=== PATIENT | male | born 1960 | race Caucasian/White ===

== ENCOUNTER 2024-06-04 06:40 | Observation (INO) | payer MEDICARE, OTHER ==
--- NOTE | 2024-06-04 07:25 | ED ---
General Adult HPI - General Chief complaint: Dizziness Stated complaint: Dizziness Time Seen by Provider: 06/04/24 07:01 Source: patient, family, RN notes reviewed Mode of arrival: wheelchair Limitations: no limitations - History of Present Illness Initial comments: Patient is a 64-year-old male present to the emergency department with concern for dizziness. Onset of symptoms was a couple hours ago. Patient woke up and felt dizzy described as a spinning type sensation. Symptoms worsen with head movement and upright position. No weakness or confusion. Patient has had some problems with word finding. No history of similar symptoms previously. - Related Data Home Medications Medication Instructions Recorded Confirmed No Known Home Medications 06/04/24 06/04/24 Allergies Allergy/AdvReac Type Severity Reaction Status Date / Time No Known Allergies Allergy Verified 06/04/24 10:55 Review of Systems ROS Statement: Those systems with pertinent positive or pertinent negative responses have been documented in the HPI. ROS Other: All systems not noted in ROS Statement are negative. Constitutional: Denies: fever Eyes: Denies: eye pain ENT: Denies: ear pain Respiratory: Denies: cough Cardiovascular: Denies: chest pain Gastrointestinal: Reports: nausea. Denies: abdominal pain Neurological: Reports: as per HPI, vertigo. Denies: weakness General Exam Limitations: no limitations General appearance: alert, in no apparent distress Head exam: Present: normocephalic Eye exam: Present: normal appearance, PERRL, EOMI. Absent: nystagmus ENT exam: Present: normal oropharynx Neck exam: Present: normal inspection Respiratory exam: Present: normal lung sounds bilaterally Cardiovascular Exam: Present: regular rate, normal rhythm GI/Abdominal exam: Present: soft. Absent: tenderness Extremities exam: Present: normal inspection. Absent: pedal edema, calf tendern ess Neurological exam: Present: alert, oriented X3, CN II-XII intact. Absent: motor sensory deficit Expanded Neurological exam: Present: protecting the airway Speech: Present: fluid speech Cranial nerves: EOM's Intact: Normal, Facial Sensation: Normal Sensory exam: Upper Extremity Light Touch: Normal, Lower Extremity Light Touch: Normal Motor strength exam: RUE: 5, LUE: 5, RLE: 5, LLE: 5 Eye Response: (4) open spontaneously Motor Response: (6) obeys commands Verbal Response: (5) oriented Psychiatric exam: Present: normal affect, normal mood Skin exam: Present: normal color Course Vital Signs 06/04/24 06/04/24 06/04/24 06:52 08:13 10:48 Temperature 97.2 F L Pulse Rate 69 73 79 Respiratory 18 18 18 Rate Blood Pressure 146/86 157/82 158/92 O2 Sat by Pulse 97 95 97 Oximetry EKG Findings - EKG Results: EKG: interpreted by ERMD, sinus rhythm, normal axis, normal QRS, normal ST/T Medical Decision Making - Medical Decision Making Was pt. sent in by a medical professional or institution (, PA, INDUSTRIAL GARAGE SERVICER, urgent care, hospital, or [facility]...) When possible be specific @ -No Did you speak to anyone other than the patient for history (EMS, parent, family, police, friend...)? What history was obtained from this source @ - is present helps right history including her concerns with speech problems of the patient Did you review nursing and triage notes (agree or disagree)? Why? @ -I reviewed and agree with nursing and triage notes Were old charts reviewed (outside hosp., previous admission, EMS record, old EKG, old radiological studies, urgent care reports/EKG's, [facility] records)? Report findings @ -No old charts were reviewed Differential Diagnosis (chest pain, altered mental status, abdominal pain women, abdominal pain men, vaginal bleeding, weakness, fever, dyspnea, syncope, headache, dizziness, GI bleed, back pain, seizure, CVA, palpatations, mental health, musculoskeletal)? @ -Differential Dizziness: Benign paroxysmal positional Vertigo, Meniere's disease, otitis media, acoustic neuroma, vertebrobasilar insufficiency, cerebellar stroke, encephalitis, hypovolemic, arrhythmia, coronary artery syndrome, anemia, this is not meant to be an all-inclusive list EKG interpreted by me (3pts min.). @ -As above X-rays interpreted by me (1pt min.). @ -None done CT interpreted by me (1pt min.). @ -CT brain does not reveal acute abnormality U/S interpreted by me (1pt. min.). @ -None done What testing was considered but not performed or refused? (CT, X-rays, U/S, labs)? Why? @ -None What meds were considered but not given or refused? Why? @ -None Did you discuss the management of the patient with other professionals (professionals i.e. DrPippa, PA, INDUSTRIAL GARAGE SERVICER, lab, RT, psych nurse, social services assistant, animal treatment investigator, teacher, bomb squad officer, shelter case manager)? Give summary @ -Case was discussed with Dr. Dooley who does not feel patient needs intervention following CTA results. Case also discussed with Dr. Erickson who will admit covering hospital call. Was smoking cessation discussed for >3mins.? @ -No Was critical care preformed (if so, how long)? @ -No Were there social determinants of health that impacted care today? How? (Homelessness, low income, unemployed, alcoholism, drug addiction, trans portation, low edu. Level, literacy, decrease access to med. care, [facility], rehab)? @ -No Was there de-escalation of care discussed even if they declined (Discuss DNR or withdrawal of care, Hospice)? DNR status @ -No What co-morbidities impacted this encounter? (DM, HTN, Smoking, COPD, CAD, Cancer, CVA, ARF, Chemo, Hep., AIDS, mental health diagnosis, sleep apnea, morbid obesity)? @ -None Was patient admitted / discharged? Hospital course, mention meds given and route, prescriptions, significant lab abnormalities, going to OR and other pertinent info. @ -Patient presents with vertigo symptoms. Symptoms improved but not resolved on reevaluation. Patient did also have some speech problems concerned by the however patient did not notice this. Secondary to this patient will be held with neurology consult. Admission orders written. Patient reevaluated and updated. Undiagnosed new problem with uncertain prognosis? @ -No Drug Therapy requiring intensive monitoring for toxicity (Heparin, Nitro, Insulin, Cardizem)? @ -No Were any procedures done? @ -No Diagnosis/symptom? @ -Vertigo Acute, or Chronic, or Acute on Chronic? @ -Acute Uncomplicated (without systemic symptoms) or Complicated (systemic symptoms)? @ -Default Side effects of treatment? @ -No Exacerbation, Progression, or Severe Exacerbation? @ -No Poses a threat to life or bodily function? How? (Chest pain, [place], [place], pneumonia, PE, COPD, DKA, ARF, appy, cholecystitis, CVA, Diverticulitis, Homicidal, Suicidal, threat to staff... and all critical care pts) @ -No - Lab Data Result diagrams: 06/04/24 07:24 06/04/24 07:24 Lab Results 06/04/24 06/04/24 06/04/24 Range/Units 07:24 07:24 07:24 WBC 15.5 H (3.8-10.6) k/uL RBC 5.48 (4.30-5.90) m/uL Hgb 17.4 (13.0-17.5) gm/dL Hct 50.3 (39.0-53.0) % MCV 91.9 (80.0-100.0) fL MCH 31.7 (25.0-35.0) pg MCHC 34.5 (31.0-37.0) g/dL RDW 12.6 (11.5-15.5) % Plt Count 266 (150-450) k/uL MPV 7.9 Neutrophils % 88 % Lymphocytes % 7 % Monocytes % 3 % Eosinophils % 1 % Basophils % 0 % Neutrophils # 13.6 H (1.3-7.7) k/uL Lymphocytes # 1.2 (1.0-4.8) k/uL Monocytes # 0.4 (0-1.0) k/uL Eosinophils # 0.1 (0-0.7) k/uL Basophils # 0.0 (0-0.2) k/uL PT 10.6 (10.0-12.5) sec INR 1.0 (<1.2) APTT 21.9 L (22.0-30.0) sec Sodium 136 L (137-145) mmol/L Potassium 4.4 (3.5-5.1) mmol/L Chloride 104 (98-107) mmol/L Carbon Dioxide 20 L (22-30) mmol/L Anion Gap 12 mmol/L BUN 15 (9-20) mg/dL Creatinine 0.63 L (0.66-1.25) mg/dL Est GFR (CKD-EPI)AfAm >90 (>60 ml/min/1.73 sqM) Est GFR (CKD-EPI)NonAf >90 (>60 ml/min/1.73 sqM) Glucose 278 H (74-99) mg/dL Calcium 9.1 (8.4-10.2) mg/dL Total Bilirubin 1.3 (0.2-1.3) mg/dL AST 21 (17-59) U/L ALT 23 (4-49) U/L Alkaline Phosphatase 116 (38-126) U/L Total Protein 7.6 (6.3-8.2) g/dL Albumin 4.3 (3.5-5.0) g/dL Disposition Clinical Impression: Vertigo Disposition: ADMITTED IP TO THIS HOSP Is patient prescribed a controlled substance at d/c from ED?: No Referrals: [facility] [NON-STAFF] - 1-2 days (Contact a primary care office to become established with a provider. ) None,Stated [Primary Care Provider] - 1-2 days Forms: Area PCPs Time of Disposition: 11:58
[2024-06-04] MEDS: MECLIZINE 12.5 MG TAB PO STA (07:29)
[2024-06-04 07:34] LABS: Basophils % (A) 0 %; Eosinophils # (A) 0.1 k/uL (0-0.7); Eosinophils % (A) 1 %; HCT 50.3 % (39.0-53.0); HGB 17.4 gm/dL (13.0-17.5); Lymphocytes # (A) 1.2 k/uL (1.0-4.8); Lymphocytes % (A) 7 %; MCH 31.7 pg (25.0-35.0); MCHC 34.5 g/dL (31.0-37.0); MCV 91.9 fL (80.0-100.0); Mean Platelet Volume 7.9; Monocytes # (A) 0.4 k/uL (0-1.0); Monocytes % (A) 3 %; Neutrophils # (A) 13.6 k/uL (1.3-7.7); Neutrophils % (A) 88 %; Platelet Count 266 k/uL (150-450); RBC 5.48 m/uL (4.30-5.90); RDW 12.6 % (11.5-15.5); WBC 15.5 k/uL (3.8-10.6)
[2024-06-04] MEDS: SODIUM CHLORIDE 0.9% 1,000 ML IV STA (07:34)
[2024-06-04] MEDS: METOCLOPRAMIDE 5 MG/ML 2 ML VIAL IVP STA (07:34)
[2024-06-04 07:40] LABS: Prothrombin Time 10.6 sec (10.0-12.5)
[2024-06-04 07:45] LABS: ALT 23 U/L (4-49); AST 21 U/L (17-59); African American GFR (CKD) >90 (>60 ml/min/1.73 sqM); Albumin 4.3 g/dL (3.5-5.0); Alkaline Phosphatase 116 U/L (38-126); Anion Gap 12 mmol/L; Blood Urea Nitrogen 15 mg/dL (9-20); Calcium 9.1 mg/dL (8.4-10.2); Carbon Dioxide 20 mmol/L (22-30); Chloride 104 mmol/L (98-107); Glucose 278 mg/dL (74-99); Non-African American GFR(CKD) >90 (>60 ml/min/1.73 sqM); Potassium 4.4 mmol/L (3.5-5.1); Sodium 136 mmol/L (137-145); Total Bilirubin 1.3 mg/dL (0.2-1.3); Total Protein 7.6 g/dL (6.3-8.2)
[2024-06-04 07:47] LABS: Partial Thromboplastin Time 21.9 sec (22.0-30.0)
--- NOTE | 2024-06-04 10:23 | CT ---
EXAMINATION TYPE: CT angio head neck DATE OF EXAM: 06/04/2024 9:57 AM COMPARISON: 06/04/2024.. CLINICAL INDICATION: Male, 64 years old with history of vertigo; PHH, vertigo TECHNIQUE: Axially acquired helical CT angiogram of the head and neck was obtained with contrast. Axi al images are supplemented with 3D reconstructions and MIP images which were post-processed at an in dependent workstation. NASCET criteria used. Contrast used:65 ml mL of Isovue 370 with IV Contrast, Oral contrast used: None. CT DLP: combined 1727 mGycm, Automated exposure control for dose reduction was used. FINDINGS: CTA HEAD: No evidence of acute intracranial hemorrhage, mass effect, or midline shift. The ventricles, sulci, a nd cisterns are unremarkable. Vertebral arteries: The vertebral arteries are patent. Vertebral artery dominance: Right dominant, focal narrowing of 41% stenosis of the right intracranial vertebral artery series 508 image 38. The left vertebral artery does not fill only seen entering the skull there is some tiny calculi vessels present possibly reconstitution of an occluded vertebral ar samy near the level of C1. Basilar artery: The basilar artery is intact. The basilar artery bifurcation is normal. Internal Carotid arteries: The cervical, petrous, cavernous and supraclinoid segments are normal. DOUG: Patent with no evidence of aneurysm. ACOM: Present without evidence of aneurysm. MCA: Patent with no evidence of aneurysm. ASSISTANT STORE MANAGER OPERATIONS: Patent with no evidence of aneurysm. PCOM: Hypoplastic bilaterally. Dural sinuses: Patent. CTA NECK: Right Carotid System: The common carotid artery and external carotid artery are patent. The carotid bifurcation demonstrate s no evidence of hemodynamically significant stenosis. The remaining portions of the internal carotid artery demonstrate normal size without significant narrowing. Left Carotid System: The common carotid artery and external carotid artery are patent. The carotid bifurcation demonstrate s no evidence of hemodynamically significant stenosis. The remaining portions of the internal carotid artery demonstrate normal size without significant narrowing. The right vertebral artery is dominant left vertebral artery does not visualize in the intracranial p ortion which relatively terminates at 5 series 501 image 41% stenosis. There is a three-vessel aortic arch. The origins of the great vessels are patent. No evidence of hemo dynamically significant stenosis. Upper thorax: Paraseptal and centrilobular emphysema changes in lung apices. IMPRESSION: 1. Nonvisualization of the intracranial portion of the left vertebral artery possibly occluded. Cons ider catheter angiography. 2. 41% stenosis of the of the right intracranial vertebral artery series 508 image 38. 3. No evidence of dissection of the cervical internal carotid arteries or vertebral arteries. 4. No any evidence of significant stenosis at the carotid bifurcations. 5. No evidence of additional intracranial high-grade stenosis or intracranial aneurysm. [facility], , 06/04/2024 10:21 AM
--- NOTE | 2024-06-04 10:40 | CT ---
EXAMINATION TYPE: CT brain wo con DATE OF EXAM: 06/04/2024 9:52 AM COMPARISON: None. CLINICAL INDICATION: Male, 64 years old with history of vertigo, TECHNIQUE: Brain: Axial CT images of the brain were obtained with coronal and sagittal reformats created and rev iewed. Contrast used: None. Oral contrast used: None. CT DLP: 1727 mGycm, Automated exposure control for dose reduction was used. FINDINGS: Brain: Extra-axial spaces: No abnormal extra-axial fluid collections. Ventricular system: Within normal limits Cerebral parenchyma: No acute intraparenchymal hemorrhage or mass effect. The weems-white junction is well differentiated. Cerebellum: Unremarkable. Mass effect: No evidence of midline shift. Intracranial vasculature: unremarkable Soft tissues: Normal. Calvarium/osseous structures: No depressed skull fracture. Paranasal sinuses and mastoid air cells: Mild scattered paranasal sinus disease. Visualized orbits: Orbital contents are intact. IMPRESSION: No acute intracranial process. [facility], , 06/04/2024 10:38 AM
[2024-06-04] MEDS ORDERED: MECLIZINE 25 MG TAB PO PRN (11:23)
[2024-06-04] MEDS ORDERED: ACETAMINOPHEN TAB 325 MG TAB PO PRN (11:24)
[2024-06-04] MEDS ORDERED: NALOXONE 0.4 MG/ML 1 ML VIAL IV PRN (11:24)
--- NOTE | 2024-06-04 12:54 | P.HPIM ---
History of Present Illness H&P Date: 06/04/24 Patient is a 64-year-old male with CAD with stent placement x 7, hypertension, hyperlipidemia here for evaluation of dizziness. He reported that he woke up around 430 this morning from bed and smoked a cigarette when he began to have dizziness like the room was spinning with associated blurred vision, nausea with x 1 nonbloody nonbilious emesis and right frontal area headache that was dull but constant with an intensity of 3/10. He was also noted to have difficulty of finding words on admission to the ED but has improved since then. On my assessment, he still having persistent dizziness. He denied facial symmetry, focal weakness, gait changes, chest pain, palpitations, shortness of breath, extremity swelling, calf pain, recent illness or recent hospitalization. He moved from [place] 2 years ago and has not followed up with a PCP since then. On admission: Vitals: Temperature of 97.2 Fahrenheit, pulse rate 69, respiratory rate 18, blood pressure 146/86, O2 saturation 97% on room air Labs: WBC 15.5, hemoglobin 17.4, platelet count 266,000, sodium 136, potassium 4.4, bicarb 20, BUN 15, creatinine 0.63, glucose 278, calcium 9.1. Coagulation panel showed low PTT at 21.9 otherwise unremarkable. Liver enzymes normal, albumin normal.. Imaging: Brain CT showed no acute intracranial process CT angiography of the head and neck showed nonvisualization of the intracranial portion of the left vertebral artery possibly occluded, 41% stenosis of the right intracranial vertebral artery, no evidence of dissection of the carotid arteries or vertebral arteries or stenosis of carotid bifurcations or evidence of additional intracranial high-grade stenosis or aneurysm. EKG on admission showed sinus rhythm with a rate of 72, NC interval 177 MS, left ventricular hypertrophy as noted by increased waves in V3 through V5, no ST-T changes, QTc 418 MS. ED documentation reviewed. Meclizine and IV fluids 0.9 normal saline 75 cc started in the ED Review of systems: Pertinent positives and negatives as discussed in HPI, a complete review of systems was performed and all other systems are negative. Social history: Tobacco: Current daily smoker for 50 years. Smokes 1 pack a day Alcohol: Denies alcohol intake Recreational drugs: Smokes marijuana Travel: No recent prolonged travel Physical examination: Vital signs reviewed General: non toxic, no distress, appears at stated age Derm: no unusual rashes/lesions, warm Head: atraumatic, normocephalic, symmetric Eyes: EOMI, anicteric sclera, pupils equal round reactive to light ENT: Nose and ears atraumatic Neck: No cervical lymphadenopathy, trachea midline, supple Mouth: no lip lesion, mucus membranes moist Cardiovascular: S1S2 reg, no murmur Lungs: CTA bilateral, no rhonchi, no rales, no accessory muscle use Abdominal: soft, nondistended, nontender to palpation, no guarding Ext: muscle strength 5 out of 5 in all 4 extremities grossly, no gross muscle atrophy, no contractures, positive dorsalis pedis pulse bilateral, no edema Neuro: CN II-XI grossly intact, no gross focal neuro deficits, negative for nystagmus Psych: Alert and oriented x 3, appropriate affect and mood Assessment/Plan: 64-year-old male with no active medical history here for evaluation of dizziness. 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 Dizziness, likely Vertigo vs acute CVA vs complex Migraine -CT angiography of the head and neck showed nonvisualization of the intracranial portion of the left vertebral artery possibly occluded, 41% stenosis of the right intracranial vertebral artery, no evidence of dissection of the carotid arteries or vertebral arteries or stenosis of carotid bifurcations or evidence of additional intracranial high-grade stenosis or aneurysm. -Neurochecks ordered -Fall precautions -Cardiac telemetry -Aspirin 81 mg po and Plavix 75mg PO initiated -Lipitor 40mg initiated -Meclizine 25 mg p.o. 3 times daily as needed for dizziness -Zofran 4 mg IVP every 8 hours as needed for nausea and vomiting -Ordered lipid panel, A1c, TSH -Echocardiogram, Brain MRI ordered -Consult neurology #. Hyperglycemia -Glucose 278 -No history of diabetes -Check A1c -Monitor BMP #. Hypertension -Takes no home medication -Blood pressure 140/150 SBP -Optimize medications on discharge Chronic Conditions: #. Hyperlipidemia -Lipid panel ordered -Initiate Lipitor 40 mg p.o. daily F: Oral intake E: None for now N: Heart healthy diet A: Fall precautions DVT ppx: SCDs CODE STATUS: Full Discussed with: Patient Anticipated discharge place: Home Evelin Hubbard MD PGY-1 Internal Medicine Dictation was produced using [employer] dictation software. please excuse any grammatical, word or spelling errors. The patient is admitted with an anticipated less than 2 midnight stay as observation status for evaluation of vertigo. A total of 65 minutes was spent on the care of this complex patient more than 50% of the time was spent in counseling and care coordination. I have seen and evaluated the patient today. Discussed with the resident and agree with the residents finding and plan as documented in the resident's note. Changes highlighted in blue font. Past Medical History Past Medical History: Coronary Artery Disease (CAD), Hyperlipidemia Additional Past Medical History / Comment(s): Myocardial infartion x2 Past Surgical History: Heart Catheterization With Stent Additional Past Anesthesia/Blood Transfusion Reaction / Comment(s): x7 stents Medications and Allergies Home Medications Medication Instructions Recorded Confirmed Type No Known Home Medications 06/04/24 06/04/24 History Allergies Allergy/AdvReac Type Severity Reaction Status Date / Time No Known Allergies Allergy Verified 06/04/24 10:55 Physical Exam Vitals: Vital Signs Temp Pulse Resp BP Pulse Ox 06/04/24 10:48 79 18 158/92 97 06/04/24 08:13 73 18 157/82 95 06/04/24 06:52 97.2 F L 69 18 146/86 97 Intake and Output 06/03/24 06/04/24 06/04/24 22:59 06:59 14:59 Other: Weight 84.368 kg Results CBC & Chem 7: 06/04/24 07:24 06/04/24 07:24 Labs: Abnormal Lab Results - Last 24 Hours (Table) 06/04/24 06/04/24 06/04/24 Range/Units 07:24 07:24 07:24 WBC 15.5 H (3.8-10.6) k/uL Neutrophils # 13.6 H (1.3-7.7) k/uL APTT 21.9 L (22.0-30.0) sec Sodium 136 L (137-145) mmol/L Carbon Dioxide 20 L (22-30) mmol/L Creatinine 0.63 L (0.66-1.25) mg/dL Glucose 278 H (74-99) mg/dL
[2024-06-04] MEDS: ASPIRIN 81 MG PO SCH (13:17)
[2024-06-04] MEDS: NICOTINE 21MG/24HR PATCH TRANSDERM SCH (14:08)
[2024-06-04] MEDS: ATORVASTATIN 40 MG TAB PO SCH (16:29)
[2024-06-04] MEDS: CLOPIDOGREL 75 MG TAB PO SCH (16:29)
[2024-06-04 17:18] LABS: Glucose,Whole Blood 187 mg/dL (70-110)
[2024-06-04] MEDS: ASPIRIN 81 MG PO STA (17:29)
[2024-06-04] MEDS ORDERED: DEXTROSE 50% SYRINGE 50 ML IVP PRN ×2 (17:49)
[2024-06-04] MEDS: CALCIUM CARBONATE 500 MG CHEWABLE PO PRN (18:51)
[2024-06-04] MEDS: ONDANSETRON 4 MG/2 ML VIAL IVP PRN (18:51)
[2024-06-04 18:52] LABS: Chol/HDL Ratio 7.09 Ratio; LDL Cholesterol,Calculated 157.4 mg/dL (0.0-131.0)
[2024-06-04 20:12] LABS: Glucose,Whole Blood 177 mg/dL (70-110)
[2024-06-04] MEDS: MELATONIN 5 MG TABLET PO PRN (20:27)
[2024-06-04] MEDS: INSULIN LISPRO (HumaLOG) 100 UNIT/ML 10 mL VL SQ SCH (20:27)
[2024-06-05 06:09] LABS: Glucose,Whole Blood 178 mg/dL (70-110)
[2024-06-05 06:22] LABS: Basophils % (A) 0 %; Eosinophils # (A) 0.1 k/uL (0-0.7); Eosinophils % (A) 1 %; HCT 49.2 % (39.0-53.0); HGB 16.9 gm/dL (13.0-17.5); Lymphocytes # (A) 1.8 k/uL (1.0-4.8); Lymphocytes % (A) 13 %; MCH 31.7 pg (25.0-35.0); MCHC 34.4 g/dL (31.0-37.0); MCV 92.3 fL (80.0-100.0); Mean Platelet Volume 7.9; Monocytes # (A) 0.8 k/uL (0-1.0); Monocytes % (A) 6 %; Neutrophils # (A) 10.4 k/uL (1.3-7.7); Neutrophils % (A) 78 %; Platelet Count 255 k/uL (150-450); RBC 5.34 m/uL (4.30-5.90); RDW 12.6 % (11.5-15.5); WBC 13.2 k/uL (3.8-10.6)
[2024-06-05 06:33] LABS: African American GFR (CKD) >90 (>60 ml/min/1.73 sqM); Anion Gap 9 mmol/L; Blood Urea Nitrogen 14 mg/dL (9-20); Carbon Dioxide 23 mmol/L (22-30); Chloride 103 mmol/L (98-107); Glucose 181 mg/dL (74-99); Non-African American GFR(CKD) >90 (>60 ml/min/1.73 sqM); Potassium 3.7 mmol/L (3.5-5.1); Sodium 135 mmol/L (137-145)
[2024-06-05 07:53] VITALS: BP 136/82; PULSE 76; RESP 20; TEMP 98.1
--- NOTE | 2024-06-05 07:54 | P.CNNES ---
History of Present Illness Consult date: 06/04/24 Requesting physician: Don García Reason for Consult: vertigo w delayed speach History of Present Illness: Patient is a 64-year-old left-handed male, came to the hospital this morning at 6:40 AM for acute onset of vertigo and diplopia. Patient states that he woke up cmo today at 4:30- 5:00 AM and was feeling fine. He walked to the fireplace and sat down by the fireplace. He started smoking cigarettes and had smoked just have a cigarette when he suddenly started feeling dizzy. He walked to the bedroom and was having difficulty with walking to the bedroom. A little while later, he got up to get his 2 dogs out, but the dizziness returned and everything was spinning, imbalance with nausea, but no vomiting. He couldn't take his dog's to the backyard. He started feeling diplopia, nauseous, headache and weakness. He called his [id number]-law, who brought him to the hospital. He has never experienced vertigo before. He denies any focal numbness, focal weakness, facial droop. No loss of vision. He states he has been spitting up stuff, but no vomiting. He arrived to the hospital, when he was checking in, he was struggling to form words. He denied any problem with loss of hearing, tinnitus. Vital signs on arrival blood pressure 146/86, pulse rate 69 temperature 97.2. Blood test shows normal hemoglobin, WBC 15.5, platelets 266. INR 1.0. Sodium 136, renal functions, hepatic panel is normal. A1c 7.3. CT head showed no acute intracranial process. I personally reviewed CT head, agree with the findings. Visualized paranasal sinuses are clear. There is moderate wax in the left EAC but not completely occluding the canal. EKG showed sinus rhythm. Patient does not take any medication at home, does not take any antiplatelet. Stroke code was activated in the ER. ED physician discussed with Dr. Wills, and he was considered not a candidate for TNK. Since arrival to the hospital, he is no better. He still feels dizzy, diplopia. Denies any previous history of st rokes or TIA. Patient denies diabetes, or hypertension. He does have coronary artery disease, as has 7 stents, 2 VA. He has smoked 1 pack per day for 50 years. He drinks alcohol very occasionally. He smokes marijuana. Review of Systems All pertinent positive and negative review of systems mentioned in the HPI. Otherwise unremarkable. Past Medical History Past Medical History: Coronary Artery Disease (CAD), Hyperlipidemia Additional Past Medical History / Comment(s): Myocardial infartion x2 Past Surgical History: Heart Catheterization With Stent Additional Past Anesthesia/Blood Transfusion Reaction / Comment(s): x7 stents Medications and Allergies Home Medications Medication Instructions Recorded Confirmed Type No Known Home Medications 06/04/24 06/04/24 History Allergies Allergy/AdvReac Type Severity Reaction Status Date / Time No Known Allergies Allergy Verified 06/04/24 10:55 Physical Examination - Vital Signs Vital Signs: Vital Signs Temp Pulse Resp BP Pulse Ox 06/04/24 15:21 97.9 F 98 18 169/99 98 06/04/24 14:07 89 18 169/99 97 06/04/24 10:48 79 18 158/92 97 06/04/24 08:13 73 18 157/82 95 06/04/24 06:52 97.2 F L 69 18 146/86 97 Intake and Output 06/04/24 06/04/24 06/04/24 06:59 14:59 22:59 Other: Weight 84.368 kg Patient is an elderly male, in no acute distress. Patient is alert awake oriented to time place and person. Speech and language functions are normal. Patient can name and repeat very well. No aphasia or dysarthria. Attention, concentration and fund of knowledge is adequate. On cranial nerve examination, pupils are equal, round and reacting to light, visual madrigal are full on confrontation, with no neglect on double simultaneous stimulation. Extraocular muscles revealed very prominent bilateral horizontal nystagmus in the end gaze, right more than left. He has diplopia in the primary gaze as well as all gazes. Patient has probable mild right lateral rectus palsy. No obvious KIARA. Face is symmetric, tongue protrudes to the midline. Palatal elevation and sensation normal, hearing and shoulder shrug normal, facial sensation normal. On muscle strength testing, there is left-sided pronation but no drift. His strength is normal in arms and legs distally and proximally. Deep tendon reflexes are symmetric 1+ and plantars downgoing. Sensory to touch is equal with no neglect on double simultaneous stimulation. Cerebellar function showed no obvious ataxia for piddst-as-jtqm testing, although he was slightly slow but bilaterally. No ataxia for otde-ch-xqdk testing on either side. Tone and bulk of muscles normal. Gait deferred.. On general examination, there is no carotid bruit or murmur, S1-S2 audible. Lolis st is clear on consultation. Abdomen is soft nontender. No organomegaly, bowel sounds present. Peripheral pulses are present. No peripheral edema. Results - Laboratory Findings CBC and BMP: 06/05/24 05:58 06/05/24 06:14 Abnormal Lab Findings: Abnormal Labs 06/04/24 06/04/24 06/04/24 07:24 07:24 07:24 WBC 15.5 H Neutrophils # 13.6 H APTT 21.9 L Sodium 136 L Carbon Dioxide 20 L Creatinine 0.63 L Glucose 278 H Hemoglobin A1c 06/04/24 07:24 WBC Neutrophils # APTT Sodium Carbon Dioxide Creatinine Glucose Hemoglobin A1c 7.3 H Assessment and Plan Assessment: * Probable acute ischemic stroke manifesting with vertigo, nausea and diplopia. Examination revealed prominent nystagmus, and mild left pronation but no drift. Patient's NIH stroke scale is 2. Patient was considered not a candidate for TNK. * Hyperlipidemia * Coronary artery disease, with history of multiple cardiac stents * Tobacco use * Marijuana use Plan: * MRI of the brain without contrast, evaluate for acute CVA * MRA of the brain evaluate for vertebral artery stenosis/occlusion. * 2-D echo with bubble study to rule out PFO * CTA head and neck showed: Nonvisualization of the intracranial portion of the left vertebral artery, possibly occluded. Consider catheter angiography. 41% stenosis of the right intracranial vertebral artery. No evidence of di ssection of the cervical internal carotid arteries or vertebral arteries. No evidence of significant stenosis in the carotid bifurcations. No evidence of additional intracranial high-grade stenosis or intracranial aneurysm. * Patient was considered not a candidate for TNK or any intervention by Dr Wills, neuro intervention. * Fasting a.m. lipid panel * Hemoglobin A1c * Permissive hypertension for next 24-48 hours * Patient was not taking any antiplatelet medication at home. Patient to receive loading dose of aspirin 325 mg, and start Plavix 75 mg daily. * Neuro checks every 2 hours. * Telemetry monitoring rule out any arrhythmia * PT, OT, speech therapy * DVT prophylaxis: Lovenox 40 mg subcu daily * Recommend complete tobacco cessation. * Recommend marijuana cessation. * Neurology will continue to follow. Thank you for the consult.
[2024-06-05] MEDS: LORazepam 1 MG/0.5 ML VIAL IV PRN (09:26)
[2024-06-05] MEDS: ENOXAPARIN 40 MG/0.4 ML SYRINGE SQ SCH (09:27)
--- NOTE | 2024-06-05 11:15 | MR ---
EXAMINATION TYPE: MR brain wo con, MR angio head wo con DATE OF EXAM: 06/05/2024 11:01 AM COMPARISON: 06/04/2024. CLINICAL INDICATION: Male, 64 years old with history of tia; PHH, tia, vertebral artery occlusion/ st enosis. TECHNIQUE: Multi planar, multi sequence imaging was performed through the brain including: T1, T2, In version recovery, Diffusion weighted imaging, and gradient echo imaging. No gadolinium was given. 3-D aupn-oe-iugfvt Axial with MIP reconstruction created on a separate workstation.. IV Contrast: mL (None, if empty) FINDINGS: Vertebral arteries: The vertebral arteries are patent. Vertebral arteries are: Right dominant loss of flow void within the left vertebral artery. The left v ertebral artery is occluded there is a long thin tapering vessel in the area of the left vertebral ar samy suspicion MIP imaging. Basilar artery: The basilar artery is intact. The basilar artery bifurcation is normal. Internal Carotid arteries: The cervical, petrous, cavernous and supraclinoid segments are normal. DOUG: Atrophic left A1 segment. Patent with no evidence of aneurysm. ACOM: Present without evidence of aneurysm. MCA: Patent with no evidence of aneurysm. SUPER[employer]: Patent with no evidence of aneurysm. PCOM: Hypoplastic bilaterally. The weems-white junctions, ventricular system, basal cisterns appear unremarkable. Scattered foci of high T2 signal intensity are seen within the periventricular white matter. Midline structures show n o abnormality. Diffusion-weighted imaging shows no evidence of restricted diffusion. There is T2 fisher e through in the left parietal region with corresponding higher ADC signal with scattered foci of blo oming artifact in this region suggesting prior injury with hemosiderin deposition. Additional areas p resent series 7 image 301 and image 1 image 421. The bone marrow signal is within normal limits. Paranasal sinuses and mastoid air cells: No significant paranasal sinus disease. Visualized orbits: Orbital contents are intact. Loss of flow void IMPRESSION: 1. No evidence of intracranial mass or acute/subacute infarct. 2. Nonspecific white matter changes, likely secondary to small vessel ischemic disease. 3. Prior injury left posterior parietal region with scattered foci of blooming artifact compatible wi th hemosiderin deposition IMPRESSION: Left vertebral artery occlusion correlate for dissection. No evidence for intracranial aneurysm. [facility], , 06/05/2024 11:12 AM
[2024-06-05 12:40] LABS: Glucose,Whole Blood 165 mg/dL (70-110)
--- NOTE | 2024-06-05 15:15 | CA ---
Transthoracic Echo Report Name: Juan C Mac Age: 64 Gender: M : 1960 Exam Date: 06/05/2024 08:39 Exam Location: [facility] Ht (in): 70 Wt (lb): 186 Ordering Physician: Elias Childs MD Attending/Referring Phys: [id number], Naz Learning Coordinator Lori Arceo RDCS Procedure CPT: Indications: tia Cardiac Hx: CAD, Stents*7, HTN Technical Quality: Fair Contrast 1: Definity Total Dose (mL): 2 Contrast 2: Total Dose (mL): MEASUREMENTS (Male / Female) Normal Values 2D ECHO LV Diastolic Diameter PLAX 5.4 cm 4.2 - 5.9 / 3.9 - 5.3 cm LV Systolic Diameter PLAX 4.0 cm IVS Diastolic Thickness 1.1 cm 0.6 - 1.0 / 0.6 - 0.9 cm LVPW Diastolic Thickness 1.1 cm 0.6 - 1.0 / 0.6 - 0.9 cm LV Relative Wall Thickness 0.4 RV Internal Dim ED PLAX 3.0 cm LVOT Diameter 1.7 cm Aortic Root Diameter 2.6 cm LA Systolic Diameter LX 3.1 cm 3.0 - 4.0 / 2.7 - 3.8 cm LV Diastolic Volume MOD BP 147.6 cm??? 67 - 155 / 56 - 104 cm??? LV Systolic Volume MOD BP 64.5 cm??? 22 - 58 / 19 - 49 cm??? LV Ejection Fraction MOD BP 56.3 % >= 55 % LV Cardiac Index MOD BP 3072.8 cm???/min???m??? LV Diastolic Volume MOD 4C 137.5 cm??? LV Systolic Volume MOD 4C 57.7 cm??? LV Ejection Fraction MOD 4C 58.0 % LV Cardiac Index MOD 4C 2952.5 cm???/min???m??? LV Diastolic Length 4C 9.2 cm LV Systolic Length 4C 7.3 cm LV Diastolic Volume MOD 2C 149.4 cm??? LV Systolic Volume MOD 2C 63.0 cm??? LV Ejection Fraction MOD 2C 57.8 % LV Cardiac Index MOD 2C 3195.0 cm???/min???m??? LV Diastolic Length 2C 9.8 cm LV Systolic Length 2C 8.4 cm LA Volume 65.1 cm??? 18 - 58 / 22 - 52 cm??? LA Volume Index 31.7 cm???/m??? 16 - 28 cm???/m??? DOPPLER AV Peak Velocity 157.1 cm/s AV Peak Gradient 9.9 mmHg AV Mean Velocity 110.0 cm/s AV Mean Gradient 6.7 mmHg AV Velocity Time Integral 30.4 cm LVOT Peak Velocity 117.2 cm/s LVOT Peak Gradient 5.5 mmHg LVOT Velocity Time Integral 24.7 cm LVOT Stroke Volume 54.8 cm??? LVOT Stroke Volume Index 27.1 ml/m??? LVOT Cardiac Index 2027.1 cm???/min???m??? AV Area Cont Eq vti 1.8 cm??? AV Area Cont Eq pk 1.7 cm??? MV Peak Velocity 92.5 cm/s MV Peak Gradient 3.4 mmHg MV Mean Velocity 55.0 cm/s MV Mean Gradient 1.5 mmHg MV Velocity Time Integral 29.4 cm MV Area PHT 2.9 cm??? Mitral E Point Velocity 60.0 cm/s Mitral A Point Velocity 79.9 cm/s Mitral E to A Ratio 0.8 MV Deceleration Time 208.2 ms TR Peak Velocity 147.4 cm/s TR Peak Gradient 8.7 mmHg Right Atrial Pressure 5.0 mmHg Pulmonary Artery Systolic Pressu 13.7 mmHg Right Ventricular Systolic Press 13.7 mmHg FINDINGS Left Ventricle Left ventricular ejection fraction is estimated at 50-55%. Mildly increased left ventricular systolic volume. No obvious regional wall motion abnormalities. Left ventricular wall thickness normal. Right Ventricle Normal right ventricular size and function. Right ventricular systolic pressure within normal limits. Right Atrium Normal right atrial size. Left Atrium Mildly increased left atrial volume. Mitral Valve Structurally normal mitral valve. No mitral stenosis. Trace mitral regurgitation. Aortic Valve Trileaflet aortic valve. Thickened aortic valve without stenosis. No aortic regurgitation. Tricuspid Valve Structurally normal tricuspid valve. No tricuspid stenosis. Trace tricuspid regurgitation. Pulmonic Valve Structurally normal pulmonic valve. No pulmonic regurgitation. Trace pulmonic regurgitation. Pericardium No pericardial effusion. No pleural effusion. Aorta Normal size aortic root and proximal ascending aorta. CONCLUSIONS Left ventricle is of normal size with fairly well-preserved contractility ejection fraction in the 50 to 55% range. Minimal mitral tricuspid regurgitation noted. Aortic valve sclerosis no restriction. Mild mitral and calcification. No pericardial effusion no pulmonary hypertension Previewed by: Dr. Mireya Negron MD (Electronically Signed) Final Date: 05 June 2024 15:14
--- NOTE | 2024-06-05 15:27 | P.DS ---
Providers Date of admission: 06/04/24 11:59 Attending physician: Elias Childs Consults: 06/04/24 11:59 Consult Physician Routine Consulting Provider: Jennifer Aguilar Consult Reason/Comments: vertigo w delayed speach Do you want consulting provider notified?: Yes Primary care physician: Stated None Hospital Course: Hospital Course: Patient is a 64-year-old male with CAD with stent placement x 7, hypertension, hyperlipidemia here for evaluation of dizziness. On admission: Vitals: Temperature of 97.2 Fahrenheit, pulse rate 69, respiratory rate 18, blood pressure 146/86, O2 saturation 97% on room air Labs: WBC 15.5, hemoglobin 17.4, platelet count 266,000, sodium 136, potassium 4.4, bicarb 20, BUN 15, creatinine 0.63, glucose 278, calcium 9.1. Coagulation panel showed low PTT at 21.9 otherwise unremarkable. Liver enzymes normal, albumin normal.. Imaging: Brain CT showed no acute intracranial process CT angiography of the head and neck showed nonvisualization of the intracranial portion of the left vertebral artery possibly occluded, 41% stenosis of the right intracranial vertebral artery, no evidence of dissection of the carotid arteries or vertebral arteries or stenosis of carotid bifurcations or evidence of additional intracranial high-grade stenosis or aneurysm. EKG on admission showed sinus rhythm with a rate of 72, MD interval 177 MS, left ventricular hypertrophy as noted by increased waves in V3 through V5, no ST-T changes, QTc 418 MS. Patient was admitted for evaluation of dizziness to rule out vertigo versus acute CVA versus complex migraine. Neurochecks, fall precautions, cardiac telemetry, aspirin, Plavix, Lipitor, meclizine, echocardiogram, brain MRI, lipid panel, A1c, TSH ordered. Neurology consulted. MRI of the brain and MR angiography showed no evidence of intracranial mass or acute/subacute infarct, nonspecific white matter changes likely secondary to small vessel ischemic disease, prior injury to left posterior parietal region with scattered foci of blooming artifact compatible with hemosiderin deposition, left vertebral artery conclusion correlate for dissection. No evidence for intracranial aneurysm. A1c was elevated at 7.3, lipid panel showed to be elevated triglycerides, elevated cholesterol and elevated LDL. TSH was normal. Patient symptoms were stable throughout hospital stay and no new symptoms or complications occurred. Patient is cleared for discharge today and prescribed oral aspirin, Lipitor, metformin, meclizine, Plavix and nicotine patches. He is advised to follow-up with neurologist, PCP, and neurointensivist. Final Diagnosis: #. Dizziness, likely acute CVA vs BPPV #. Diabetes type II #. Hypertension #. Hyperlipidemia Physical examination: Vital signs reviewed General: non toxic, no distress Derm: no unusual rashes/lesions, warm Head: atraumatic, normocephalic, symmetric Eyes: EOMI, anicteric sclera, pupils equal round reactive to light ENT: Nose and ears atraumatic Neck: No cervical lymphadenopathy, trachea midline, supple Mouth: no lip lesion, mucus membranes moist Cardiovascular: S1S2 reg, no murmur Lungs: CTA bilateral, no rhonchi, no rales, no accessory muscle use Abdominal: soft, nondistended, nontender to palpation, no guarding Ext: muscle strength 5 out of 5 in all 4 extremities grossly, no gross muscle atrophy, no contractures, positive dorsalis pedis pulse bilateral, no edema Neuro: CN II-XI grossly intact, no gross focal neuro deficits Psych: Alert, oriented, appropriate affect and mood I have seen and evaluated the patient today. Discussed with the resident and agree with the residents finding and plan as documented in the resident's note. Changes highlighted in blue font. This complex discharge took 35 minutes to coordinate and complete. Patient Condition at Discharge: Stable Plan - Discharge Summary Discharge Rx Participant: No New Discharge Prescriptions: New Aspirin 81 mg PO DAILY #90 tab Atorvastatin [Lipitor] 40 mg PO DAILY #90 tab Meclizine [Antivert] 25 mg PO TID PRN #60 tab PRN Reason: Vertigo Nicotine 21Mg/24Hr Patch [Habitrol] 1 patch TRANSDERM DAILY #30 patch metFORMIN HCL 500 mg PO DAILY #60 tablet Clopidogrel [Plavix] 75 mg PO DAILY #19 tab Discharge Medication List Aspirin 81 mg PO DAILY #90 tab 06/05/24 [Rx] Atorvastatin [Lipitor] 40 mg PO DAILY #90 tab 06/05/24 [Rx] Clopidogrel [Plavix] 75 mg PO DAILY #19 tab 06/05/24 [Rx] Meclizine [Antivert] 25 mg PO TID PRN #60 tab 06/05/24 [Rx] Nicotine 21Mg/24Hr Patch [Habitrol] 1 patch TRANSDERM DAILY #30 patch 06/05/24 [Rx] metFORMIN HCL 500 mg PO DAILY #60 tablet 06/05/24 [Rx] Follow up Appointment(s)/Referral(s): Yves Hobbs MD [STAFF PHYSICIAN] - 1 Week [facility] [NON-STAFF] - 1-2 days (Contact a primary care office to become established with a provider. ) Jonathon Wills MD [STAFF PHYSICIAN] - 1 Week Todd Sevilla DO [STAFF PHYSICIAN] - 1 Week Patient Instructions/Handouts: How to Stop Smoking (DC), Vertigo (DC), Dizziness (GEN) Activity/Diet/Wound Care/Special Instructions: Please follow up with PCP Discharge/Stand Alone Forms: Area PCPs Discharge Disposition: HOME SELF-CARE
--- NOTE | 2024-06-07 09:59 | P.PN ---
Subjective Progress Note Date: 06/05/24 Patient was seen for a follow-up. Patient states he is doing much better. Diplopia has significantly improved. However still present. No new focal symptoms. Objective - Vital Signs Vital signs: Vital Signs Temp 98.1 F 06/05/24 07:48 Pulse 76 06/05/24 07:48 Resp 20 06/05/24 07:48 BP 136/82 06/05/24 07:48 Pulse Ox 97 06/05/24 07:48 FiO2 Intake & Output 06/04/24 06/05/24 06/05/24 18:59 06:59 18:59 Intake Total 240 Balance 240 Weight 84.368 kg Intake: Oral 240 Other: Voiding Method Toilet Toilet # Voids 1 - Exam Mental status, speech and language functions are normal. Cranial nerves still revealed right lateral rectus weakness. However he has diplopia in all gaze, which is unusual for typical right sixth nerve palsy. Rest of the examination is nonfocal. No pronator drift. - Labs CBC & Chem 7: 06/05/24 05:58 06/05/24 06:14 Labs: Abnormal Lab Results - Last 24 Hours (Table) 06/04/24 06/04/24 06/04/24 Range/Units 07:24 07:24 17:16 WBC (3.8-10.6) k/uL Neutrophils # (1.3-7.7) k/uL Sodium (137-145) mmol/L Creatinine (0.66-1.25) mg/dL Glucose (74-99) mg/dL POC Glucose (mg/dL) 187 H (70-110) mg/dL Hemoglobin A1c 7.3 H (<=6.0) % Triglycerides 175.00 H (0.00-149.00) mg/dL Cholesterol 224.00 H (0.00-200.00) mg/dL LDL Cholesterol, Calc 157.4 H (0.0-131.0) mg/dL HDL Cholesterol 31.60 L (40.00-60.00) mg/dL 06/04/24 06/05/24 06/05/24 Range/Units 20:10 05:58 06:07 WBC 13.2 H (3.8-10.6) k/uL Neutrophils # 10.4 H (1.3-7.7) k/uL Sodium (137-145) mmol/L Creatinine (0.66-1.25) mg/dL Glucose (74-99) mg/dL POC Glucose (mg/dL) 177 H 178 H (70-110) mg/dL Hemoglobin A1c (<=6.0) % Triglycerides (0.00-149.00) mg/dL Cholesterol (0.00-200.00) mg/dL LDL Cholesterol, Calc (0.0-131.0) mg/dL HDL Cholesterol (40.00-60.00) mg/dL 06/05/24 06/05/24 Range/Units 06:14 12:39 WBC (3.8-10.6) k/uL Neutrophils # (1.3-7.7) k/uL Sodium 135 L (137-145) mmol/L Creatinine 0.63 L (0.66-1.25) mg/dL Glucose 181 H (74-99) mg/dL POC Glucose (mg/dL) 165 H (70-110) mg/dL Hemoglobin A1c (<=6.0) % Triglycerides (0.00-149.00) mg/dL Cholesterol (0.00-200.00) mg/dL LDL Cholesterol, Calc (0.0-131.0) mg/dL HDL Cholesterol (40.00-60.00) mg/dL Assessment and Plan Assessment: * Probable acute ischemic stroke manifesting with vertigo, nausea and diplopia. Examination revealed prominent nystagmus, and mild left pronation but no drift. Patient's NIH stroke scale is 1. * Diabetes, new onset * Hypertension * Hyperlipidemia * Coronary artery disease, with history of multiple cardiac stents * Tobacco use * Marijuana use Plan: * MRI of the brain without contrast, revealed no evidence of intracranial mass or acute/subacute infarct. Nonspecific white matter changes, likely secondary to small vessel ischemic disease. Prior injury (see her parietal region with scattered foci of blooming artifact compatible with was resented deposition. I personally reviewed MRI, I agree with the findings. * MRA of the brain revealed left vertebral artery occlusion, correlate for dissection. No evidence for intracranial aneurysm. * 2-D echo revealed LV EF 50-55%. No obvious regional wall motion abnormalities. Normal left-ventricular thickness. Normal right atrial size. Mild increased left atrial volume. Some valvular calcification but no stenosis or regurgitation. * CTA head and neck showed: Nonvisualization of the intracranial portion of the left vertebral artery, possibly occluded. Consider catheter angiography. 41% stenosis of the right intracranial vertebral artery. No evidence of dissection of the cervical internal carotid arteries or vertebral arteries. No evidence of significant stenosis in the carotid bifurcations. No evidence of additional intracranial high-grade stenosis or intracranial aneurysm. * Patient was considered not a candidate for TNK or any intervention by Dr Wills, neuro intervention. * Fasting a.m. lipid panel cholesterol 224, LDL 157, HDL 31, triglycerides 175. Agree with starting Lipitor 40 mg daily. * Hemoglobin A1c 7.3, consistent with new onset diabetes. Internal medicine to address diabetes. * Optimize control of blood pressure. * Patient was not taking any antiplatelet medication at home. Patient to receive loading dose of aspirin 325 mg, and start Plavix 75 mg daily. Recommend continuing aspirin 81 mg and Plavix 75 mg daily for 21 days, then stop Plavix and continue aspirin indefinitely. * Recommend complete tobacco cessation. * Recommend marijuana cessation. * Neurologically clear for discharge. * Patient to follow up with neuro intervention Dr. Wills for left vertebral artery occlusion versus dissection. Patient will also follow with market maker for diplopia.
== END 2024-06-05 15:20 | disposition home or self-care (01) ==
LOC: EC 06:40 → 6NMEDSUR 11:59
PROVIDERS: ADMIT Student in an Organized Health Care Education/Training Program; ATTEND Student in an Organized Health Care Education/Training Program
DX: R42 Dizziness and giddiness (principal); R29.702 NIHSS score 2; H53.2 Diplopia; H55.00 Unspecified nystagmus; R53.1 Weakness; E11.9 Type 2 diabetes mellitus without complications; I10 Essential (primary) hypertension; E78.5 Hyperlipidemia, unspecified; F17.210 Nicotine dependence, cigarettes, uncomplicated; I25.10 Atherosclerotic heart disease of native coronary artery without angina pectoris; Z95.5 Presence of coronary angioplasty implant and graft
CPT/HCPCS: 96372; 96375 ×2; 96374; 99285; 36415; 93005; 92523; 80061; 80053; 80048; 84443; 85025 ×2; 85610; 85730; 83036; 70496; 70450; 70498; 70544; 70551; G0378 ×2; C8929; S4990 ×2; J2060; J2765; J2405; J1650; Q9967; 93306

== ENCOUNTER 2024-06-16 10:06 | Day surgery (SDC) | payer MEDICARE, OTHER ==
[~2024-06-16 10:06] MED LIST: BENZOCAINE SPRAY 1 EACH MM SCH; MIDAZOLAM 2 MG/2 ML VIAL IV PRN; fentaNYL (PF) 50 MCG/ML 5 ML AMP IVP PRN
[2024-06-16 10:57] LABS: Glucose,Whole Blood 152 mg/dL (70-110)
[2024-06-16 11:04] VITALS: RESP 16; TEMP 98.1
[2024-06-16] MEDS: SODIUM CHLORIDE 0.9% 500 ML 500 ML IV ONE (12:00)
[2024-06-16] MEDS: SODIUM CHLORIDE 0.9% 500 ML 500 ML IV SCH (12:00)
[2024-06-16] MEDS: BENZOCAINE SPRAY 1 EACH TOPICAL ONE (12:46)
[2024-06-16] MEDS: fentaNYL (PF) 50 MCG/1 ML VIAL IVP ONE (13:12)
[2024-06-16] MEDS: MIDAZOLAM 2 MG/2 ML VIAL IVP ONE ×2 (13:13)
--- NOTE | 2024-06-16 13:22 | P.PCN ---
Date of Procedure: 06/16/24 Operative Findings: TRANSESOPHAGEAL ECHOCARDIOGRAM LINE WELDER: GUIDO CAMPA MD, RPVI INDICATION: Rule out cardiac source of embolization SEDATION: Conscious sedation COMPLICATION: None LEVEL OF SEDATION Moderate with sedation length of 20 PROCEDURE DESCRIPTION: After obtaining an informed consent, the patient was brought to transesophageal echocardiogram room. Pulse oximetry and heart monitors were attached to the patient. The patient throat was sprayed using lidocaine. The patient was turned into left lateral position. After that a bite guard was placed. After an appropriate conscious sedation was initiated, the transesophageal echocardiogram was advanced through a bite guard into the mid esophagus. A 2-D echocardiogram images, color Doppler images, continuous wave images, pulse-wave images, of various cardiac structure were performed. After that the transesophageal echocardiogram probe was advanced into the stomach and fixed to obtain transgastric view was. The probe was brought into the mid esophagus. Inter-atrial septum was interrogated using 2D images, color Doppler images, and then contrast study. After that transesophageal echocardiogram was withdrawn out and upon withdrawing the descending thoracic aorta all the way up to the arch was evaluated. CONCLUSION: 1. Mildly impaired LV function with EF at 45% 2. Intact left atrial abdomen 3. Intact interatrial septum 4. Intact intracardiac valves 5. No pericardial effusion
[2024-06-16 14:37] VITALS: BP 156/79; PULSE 93
== END 2024-06-16 14:43 | disposition home or self-care (01) ==
LOC: CATHCVL 10:06
PROVIDERS: ATTEND Internal Medicine Interventional Cardiology
DX: I25.10 Atherosclerotic heart disease of native coronary artery without angina pectoris (principal); E78.5 Hyperlipidemia, unspecified; Z86.73 Personal history of transient ischemic attack (TIA), and cerebral infarction without residual deficits; Z95.5 Presence of coronary angioplasty implant and graft; Z79.02 Long term (current) use of antithrombotics/antiplatelets; Z87.891 Personal history of nicotine dependence; Z79.899 Other long term (current) drug therapy
CPT/HCPCS: 93312; 93320; 93325; J2250; J3010

== ENCOUNTER → 2024-06-25 | Outpatient (CLI) | payer MEDICARE, OTHER ==
--- NOTE | 2024-06-25 16:12 | CTL ---
EXAMINATION TYPE: CT Low Dose Lung DATE OF EXAM ORDERED: 06/25/2024 COMPARISON: None CLINICAL INDICATION: Male, 64 years old with history of Z12.2 ENCNTR SCREEN FOR MALIGNANT NEOPLASM OF RESP; PHH, personal tobacco use, Lung cancer screening, History of Smoking/tobacco use. TECHNIQUE: Low dose computed tomography scan was performed through the chest at 1 mm thick sections a nd reconstructed images in multiple planes at 1 mm and [address] DLP: 81.[address] CTDI: 2.2 mGy Automated exposure control for dose reduction was used. CT DIAGNOSTIC QUALITY: Satisfactory EXAMINATION TYPE: CT Low Dose Lung DATE OF EXAM ORDERED: 06/25/2024 CLINICAL INDICATION: Male, 64 years old with history of Z12.2 ENCNTR SCREEN FOR MALIGNANT NEOPLASM OF RESP, history of tobacco use, Lung cancer screening CT DLP: 81.[address] CTDI: 2.2 mGy Automated exposure control for dose reduction was used. Comparison: None TECHNIQUE: Low dose computed tomography scan was performed through the chest at 1 mm thick sections a nd reconstructed images in multiple planes at 1 mm and [address] DIAGNOSTIC QUALITY: Satisfactory FINDINGS: There are marked emphysematous changes with an upper lobe predominance. There is a 7.7 mm nodule in the left upper lobe. There is no airspace consolidation. There is no mediastinal, hilar or axillary adenopathy. There is no pleural effusion, pleural thickening or pneumothorax. No focal osseous lesions are seen. Limited scans the upper abdomen reveals cholelithiasis. IMPRESSION: 1. Lung rads Category 3, probably benign. 7.7 mm diameter left upper lobe. Follow-up CT thorax in [facility] is recommended to confirm stability. 2. No acute cardiopulmonary disease. 3. Marked emphysematous changes. 4. Cholelithiasis. [facility], , 06/25/2024 4:09 PM
== END | disposition home or self-care (01) ==
LOC: RADCTMAIN 15:09
PROVIDERS: ATTEND Family Medicine
DX: Z12.2 Encounter for screening for malignant neoplasm of respiratory organs (principal); F17.210 Nicotine dependence, cigarettes, uncomplicated; K80.20 Calculus of gallbladder without cholecystitis without obstruction; J43.9 Emphysema, unspecified
CPT/HCPCS: 71271

== ENCOUNTER 2024-09-14 06:25 | Day surgery (SDC) | payer MEDICARE, OTHER ==
[2024-09-10 08:48] VITALS: BMI 27.5
[~2024-09-14 06:25] MED LIST changes: -BENZOCAINE SPRAY 1 EACH MM SCH; -MIDAZOLAM 2 MG/2 ML VIAL IV PRN; +SODIUM CHLORIDE 0.9% 500 ML 500 ML IV SCH; -fentaNYL (PF) 50 MCG/ML 5 ML AMP IVP PRN
[2024-09-14] MEDS ORDERED: LACTATED RINGERS 1,000 ML IV SCH (06:31)
[2024-09-14] MEDS ORDERED: LIDOCAINE 1% (10MG/ML) FOR IV START INTRADERMA PRN (06:31)
[2024-09-14] MEDS: IV FLUID CONTINUATION 1,000 ML IV ONE (06:38)
[2024-09-14 07:12] LABS: Glucose,Whole Blood 147 mg/dL (70-110)
[2024-09-14 07:19] VITALS: TEMP 97.6
[2024-09-14] MEDS ORDERED: PROPOFOL 10 MG/ML 20 ML VIAL IV ONE (07:19)
[2024-09-14] MEDS ORDERED: LIDOCAINE 1% INJ 10MG/ML (20 ML MDV) ONE (07:19)
[2024-09-14 07:44] LABS: African American GFR (CKD) >90 (>60 ml/min/1.73 sqM); Anion Gap 10 mmol/L; Blood Urea Nitrogen 21 mg/dL (9-20); Calcium 9.4 mg/dL (8.4-10.2); Carbon Dioxide 21 mmol/L (22-30); Chloride 107 mmol/L (98-107); Glucose 160 mg/dL (74-99); Non-African American GFR(CKD) >90 (>60 ml/min/1.73 sqM); Potassium 4.3 mmol/L (3.5-5.1); Sodium 138 mmol/L (137-145)
--- NOTE | 2024-09-14 08:01 | P.PCN ---
Date of Procedure: 09/14/24 Operative Findings: Cardioversion Report Performing physician Jaylon Franco M.D. Procedure performed Successful cardioversion of atrial fibrillation to normal sinus mechanism using 200 J at third attempt Indication Symptomatic atrial fibrillation Complication None Level of sedation The procedure was performed under deep sedation using propofol with ACOUSTICAL INSTALLER in the room Procedure description After obtaining an informed consent the patient was brought to the recovery room. Sedation was introduced using propofol with ACOUSTICAL INSTALLER in the room. Subsequently the patient cardioverted from atrial fibrillation to normal sinus mechanism using 200 J and first attempt Conclusion Successful cardioversion of atrial fibrillation to normal sinus mechanism using 200 J Postprocedure management Continue the current medical regimen Continue oral anticoagulation Follow-up with the patient
[2024-09-14 08:03] VITALS: RESP 16
[2024-09-14 08:57] VITALS: BP 122/77; PULSE 65
== END 2024-09-14 08:47 | disposition home or self-care (01) ==
LOC: OR 06:25
PROVIDERS: ATTEND Internal Medicine Interventional Cardiology
DX: I48.0 Paroxysmal atrial fibrillation (principal); I25.10 Atherosclerotic heart disease of native coronary artery without angina pectoris; I25.2 Old myocardial infarction; Z95.5 Presence of coronary angioplasty implant and graft; E11.9 Type 2 diabetes mellitus without complications; E78.5 Hyperlipidemia, unspecified; I65.03 Occlusion and stenosis of bilateral vertebral arteries; F17.210 Nicotine dependence, cigarettes, uncomplicated; Z79.02 Long term (current) use of antithrombotics/antiplatelets; Z79.84 Long term (current) use of oral hypoglycemic drugs; Z79.899 Other long term (current) drug therapy; Z86.73 Personal history of transient ischemic attack (TIA), and cerebral infarction without residual deficits; Z82.49 Family history of ischemic heart disease and other diseases of the circulatory system
CPT/HCPCS: 92960; 80048; J2003; J2704

== ENCOUNTER → 2024-10-06 | Outpatient (CLI) | payer MEDICARE ==
[2024-10-06 08:13] LABS: African American GFR (CKD) >90 (>60 ml/min/1.73 sqM); Anion Gap 10 mmol/L; Blood Urea Nitrogen 19 mg/dL (9-20); Calcium 9.4 mg/dL (8.4-10.2); Carbon Dioxide 23 mmol/L (22-30); Chloride 108 mmol/L (98-107); Glucose 156 mg/dL (74-99); Non-African American GFR(CKD) >90 (>60 ml/min/1.73 sqM); Potassium 4.1 mmol/L (3.5-5.1); Sodium 141 mmol/L (137-145)
--- NOTE | 2024-10-06 11:36 | CT ---
EXAMINATION TYPE: CT chest w con DATE OF EXAM: 10/06/2024 9:01 AM COMPARISON: 06/25/2024 . CLINICAL INDICATION: Male, 64 years old with history of R91.1 SOLITARY PULMONARY NODULE; [facility], TECHNIQUE: CT of the chest after IV contrast. Coronal and sagittal reconstructions performed. Contrast used:100 mL of Isovue [address] DLP: 335.20 mGycm, Automated exposure control for dose reduction was used. FINDINGS: Heart is normal size without pericardial effusion. Prominent LAD and RCA coronary artery calcificatio ns are present. Borderline ectatic ascending aorta 3.5 cm. Mild atherosclerotic arch calcifications within the infarc t vessel branching anatomy. Borderline enlarged lower right paratracheal lymph nodes measuring up to 1 cm are unchanged. No progr essive adenopathy is identified. Large caliber main right and left pulmonary arteries up to 3.0 cm suggest underlying pulmonary arteri al hypertension. Subpleural microcystic change is present throughout along with a moderate emphysema. Peripheral subpl eural reticulations and mild groundglass opacities. Calcified granuloma posterior left lung base. A cluster of left mid lung pulmonary nodules measuring up to 7 mm, axial image 25, 1 7, and 28. An ad ditional 3 mm peripheral left upper lobe pulmonary nodule, axial image 27. All of these are unchanged from 06/25/2024. No new suspicious pulmonary nodule is identified. Small hiatal hernia. Bones: No osseous destructive process. IMPRESSION: 1. COPD with moderate emphysema. There is concurrent subpleural reticular change, mild groundglass, a nd subpleural microcystic change. Consider an interstitial pneumonitis such as NSIP. Pulmonary medici ne referral if most established diagnosis. 2. Suspect underlying pulmonary arterial hypertension as well. 3. A few left mid lung pulmonary nodules measuring up to 7 mm remain unchanged. This favors a benign etiology. Patient can return to annual lung cancer screening CT. 4. Prominent LAD and RCA coronary artery calcifications. 5. Small hiatal hernia. [facility], , 10/06/2024 11:34 AM
== END | disposition home or self-care (01) ==
LOC: RADCTMAIN 07:13
PROVIDERS: ATTEND Family Medicine
DX: I25.10 Atherosclerotic heart disease of native coronary artery without angina pectoris (principal); K44.9 Diaphragmatic hernia without obstruction or gangrene; R91.8 Other nonspecific abnormal finding of lung field; J43.9 Emphysema, unspecified
CPT/HCPCS: 80048; 71260; 36415; Q9967